=== PATIENT | female | born 1980 | race Caucasian/White ===

== ENCOUNTER 2019-10-22 15:23 | Emergency (ER) | payer OTHER ==
[~2019-10-22] VITALS: Ht 170.2 cm; Wt 136.1 kg
[2019-10-22 15:42] VITALS: BP 141/90
== END 2019-10-22 17:20 | disposition home or self-care (01) ==
LOC: ER 15:23
DX: S86.912A Strain of unspecified muscle(s) and tendon(s) at lower leg level, left leg, initial encounter (principal); Z88.6 Allergy status to analgesic agent; X58.XXXA Exposure to other specified factors, initial encounter; Y93.89 Activity, other specified; Y92.89 Other specified places as the place of occurrence of the external cause; Y99.8 Other external cause status
CPT/HCPCS: 93971